=== PATIENT | male | born 1955 | race Caucasian/White ===

== ENCOUNTER 2017-10-22 10:58 | Day surgery (SDC) | payer BC ==
[2017-10-22] MEDS ORDERED: ONDANSETRON 4 MG INJ (11:27)
[2017-10-22] MEDS ORDERED: PROPOFOL 40 ML (11:27)
[2017-10-22] MEDS ORDERED: LIDOCAINE 2% (SDV) 5 ML INJ (11:27)
== END 2017-10-22 16:03 | disposition home or self-care (01) ==
LOC: GIL 10:58
DX: Z12.11 Encounter for screening for malignant neoplasm of colon (principal); K62.1 Rectal polyp; K64.4 Residual hemorrhoidal skin tags; I10 Essential (primary) hypertension; E78.5 Hyperlipidemia, unspecified
CPT/HCPCS: 45380; 88305